=== PATIENT | male | born 1960 | race Caucasian/White ===

== ENCOUNTER 2023-11-09 06:40 | Outpatient (CLI) | payer MEDICARE, OTHER, SELFPAY ==
[2023-11-09 07:22] VITALS: PULSE 54; RESP 18; O2SAT 98
[2023-11-09] MEDS: albuterol 2.5 mg/3 mL Neb INHALATION (07:22)
[2023-11-09 07:26] VITALS: PULSE 53
== END 2023-11-09 06:41 | disposition home or self-care (01) ==
PROVIDERS: PCP Internal Medicine; Visit Provider Internal Medicine
DX: J44.9 Chronic obstructive pulmonary disease, unspecified (principal)
CPT/HCPCS: 94060

== ENCOUNTER 2023-11-28 08:28 | Outpatient (CLI) | payer MEDICARE, OTHER, SELFPAY ==
--- NOTE | 2023-11-28 08:31 | NMCV_ITS ---
NM chely perf SPECT r/s* [id number] Sergo Larson Age: 63 Gender: M : 1960 Exam Date: 11/28/2023 09:36 Ordering Phys: Mynor Anne MD Technologist: INDRA Billingsley Exam Location: [facility] Indications: CAD STRESS TEST Please see separate stress test report in [facility] for full findings IMAGE PROTOCOL Rest/Stress 1 Lexiscan Day Radiopharmaceutical Dose (mCi) Administration Site Administered by Rest: Tc-99m 10.9 IV INDRA Billingsley Sestamibi Stress:Tc-99m 32.4 IV INDRA Billingsley Sestamibi Rest: 28-Nov-2023 60 Discovery 630 Stress: 28-Nov-2023 30 Discovery 630 0.4mg Lexiscan. Images obtained in supine and prone position. SPECT RESULTS Technical Quality: Good Raw Data Analysis: Normal Image Corrections: No attenuation or motion correction applied Summed Stress Score: 11 Summed Rest Score: 3 Summed Difference Score: 8 PERFUSION FINDINGS There is medium sized area of partially reversible perfusion defect seen in the inferior and inferolateral ye. This is consistent with medium sized area of prior infarct with significant jorge-infarct ischemia seen in inferior and inferolateral ye. FUNCTIONAL RESULTS (calculated via Gated SPECT) Stress Image LV EF (%): 66 Stress EDV (mL):112 TID: 1.01 Stress ESV (mL):38 FUNCTIONAL FINDINGS: There is normal left ventricular systolic function. IMPRESSIONS 1. Abnormal myocardial perfusion imaging with medium sized area of prior infarct with significant jorge-infarct ischemia seen in the inferior and inferolateral ye. 2. LV systolic function is normal Addison Martino MD (Electronically Signed) Final Date: 28 November 2023 12:01 S
--- NOTE | 2023-11-28 08:31 | ECG_ITS ---
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 Interpretive Statements NAME OF STUDY: LEXISCAN SESTAMIBI STRESS TEST INDICATION: [CAD, ] Procedure: At the baseline, the blood pressure was 134/85 mmHg with a heart rate of 48 bpm. The electrocardiogram showed sinus bradycardia, incomplete right bundle branch block and LVH changes The Lexiscan was infused over a period of 20 seconds. A total of 0.4 mg of Lexiscan was infused. The stress phase was continued for a total of 5 minutes. Heart rate was at the end of stress phase was 57 bpm and a blood pressure of 95/81 mmHg. The EKG at the peak infusion revealed normal sinus rhythm with no significant ST-T wave changes. Sestamibi was injected 20 seconds after the Lexiscan infusion. Blood pressure at the end of recovery phase was 113/87 mmHg with a heart rate of 58 bpm. Conclusion: 1. Normal EKG response to Lexiscan infusion 2. No Lexiscan induced chest pain or cardiac arrhythmia. 3. Normal blood pressure and heart rate response. 4. Sestamibi/sestamibi perfusion scan pending; see separate report. Electronically Signed On 11-28-2023 11:50:53 CDT by Addison Martino M.D. [email or web address]
[2023-11-28 08:45] VITALS: BMI 32.5
[2023-11-28] MEDS: regadenoson 0.4 Mg/5 ml Syringe IVP (10:12)
[2023-11-28 10:24] VITALS: BP 113/83; PULSE 58
--- NOTE | 2023-11-28 10:35 | PC.NURSE ---
Called Dr. Martino about patient pre stress test HR 46 sinus juliette. Advised to proceed with testing.
== END 2023-11-28 08:29 | disposition home or self-care (01) ==
PROVIDERS: PCP Internal Medicine; Visit Provider Internal Medicine
DX: I25.10 Atherosclerotic heart disease of native coronary artery without angina pectoris (principal); R94.39 Abnormal result of other cardiovascular function study
CPT/HCPCS: 36415; 78452; 93017; 96374; A9500; J2785